=== PATIENT | male | born 1975 | race Asian ===

== ENCOUNTER 2016-07-21 18:46 | Emergency (ER) | payer SELFPAY ==
[~2016-07-21] VITALS: Ht 182.9 cm; Wt 95.3 kg
[2016-07-21 18:52] VITALS: BP_SYST 151
[2016-07-21 19:00] VITALS: BP_SYST 151
== END 2016-07-21 19:00 ==
LOC: SED 18:46
DX: Z02.89 Encounter for other administrative examinations (principal); I10 Essential (primary) hypertension
CPT/HCPCS: 99283